=== PATIENT | male | born 1970 | race Caucasian/White ===

== ENCOUNTER 2020-02-27 15:50 | Emergency (ER) | payer MEDICAID, SELFPAY ==
[~2020-02-27] VITALS: Ht 185.4 cm; Wt 137.4 kg
[2020-02-27 15:50] VITALS: BP_SYST 160
--- NOTE | 2020-02-27 15:50 | NUR ---
BROUGHT INTO TRIAGE TENT AND TRIAGED, AWAITING ER BED
--- NOTE | 2020-02-27 16:01 | NUR ---
DR COFFEY OUT TO TENT FOR EVALUATION
--- NOTE | 2020-02-27 16:05 | NUR ---
PT STATES HE HAS BEEN +COVID SINCE 02/18/20 AND STILL FEELS HORRIBLE. WEAK, HEADACHES, SOB WITH EXERTION, MALAISE, NAUSEA
[2020-02-27 16:50] VITALS: BP_SYST 154
--- NOTE | 2020-02-27 16:51 | NUR ---
Patient given written and verbal discharge instructions and verbalizes understanding. ER MD discussed with patient the results and treatment provided. Patient in stable condition. ID arm band removed. Rx of LOMOTIL given. Patient educated on pain management and to follow up with PMD. Pain Scale 0/10. Opportunity for questions provided and answered. Medication side effect fact sheet provided.
== END 2020-02-27 16:51 | disposition home or self-care (01) ==
LOC: SED 15:50
DX: U07.1 COVID-19 (principal)
CPT/HCPCS: 99283

== ENCOUNTER 2020-07-04 11:35 | Emergency (ER) | payer MEDICAID, SELFPAY ==
[~2020-07-04] VITALS: Ht 185.4 cm; Wt 131.5 kg
[2020-07-04 11:35] VITALS: BP_SYST 155
[2020-07-04 11:50] VITALS: BP_SYST 155
== END 2020-07-04 11:50 | disposition home or self-care (01) ==
LOC: SED 11:35
DX: R06.02 Shortness of breath (principal); I10 Essential (primary) hypertension
CPT/HCPCS: 99281

== ENCOUNTER 2020-07-23 12:33 | Emergency (ER) | payer MEDICAID, SELFPAY ==
[~2020-07-23] VITALS: Ht 185.4 cm; Wt 129.3 kg
[2020-07-23 12:35] VITALS: BP_SYST 118
[2020-07-23] MEDS ORDERED: NACL 0.9% 1,000 ML IV ONE (13:15)
[2020-07-23 13:37] LABS: BASOPHILS # (AUTO) 0.1 K/uL (0.0-0.2); BASOPHILS % (AUTO) 0.6 % (0.0-2.0); EOSINOPHILS % (AUTO) 0.3 % (0.0-4.0); HEMOGLOBIN 11.6 g/dL (14.0-18.0); LYMPHOCYTES % (AUTO) 8.3 % (20.5-51.5); MEAN CORPUSCULAR HEMOGLOBIN 22 pg (27-31); MEAN CORPUSCULAR HGB CONC 32 % (32-36); MEAN CORPUSCULAR VOLUME 69 fL (79.0-98.0); MONOCYTES # (AUTO) 0.7 K/uL (0.0-1.0); MONOCYTES % (AUTO) 5.6 % (1.7-9.3); NEUTROPHILS # (AUTO) 10.7 K/uL (1.8-7.7); NEUTROPHILS % (AUTO) 85.2 % (40.0-70.0); PLATELET COUNT (AUTO) 174 K/uL (130-430); RED BLOOD CELL COUNT(AUTO) 5.37 MIL/uL (4.2-6.2); RED CELL DISTRIBUTION WIDTH 23.3 % (9.0-15.0); WHITE BLOOD COUNT (AUTO) 12.6 K/uL (4.8-10.8)
[2020-07-23 13:49] LABS: CALCIUM 8.5 mg/dL (8.4-11.0); CREATININE 1.57 mg/dL (0.55-1.30); POTASSIUM 3.6 mmol/L (3.5-5.1)
[2020-07-23 13:53] LABS: INR 1.1 (0.80-1.20); PROTHROMBIN TIME 11.7 SECS (9.5-12.5)
[2020-07-23 13:54] LABS: ALBUMIN 3.1 g/dL (3.4-4.8); TOTAL BILIRUBIN 0.9 mg/dL (0.0-1.0)
[2020-07-23] MEDS ORDERED: CLINDAMYCIN 300 MG/50 ML D5W 50 ML IV ONE (14:45)
[2020-07-23] MEDS ORDERED: CLIN300C12 PO (14:49)
[2020-07-23 15:11] LABS: BILIRUBIN,URINE NEGATIVE (NEGATIVE); BLOOD, URINE NEGATIVE (NEGATIVE); COLOR,URINE YELLOW (YELLOW); GLUCOSE,URINE NEGATIVE (NEGATIVE); KETONES,URINE NEGATIVE (NEGATIVE); LEUKOCYTE ESTERASE ,URINE TRACE (NEGATIVE); NITRITE, URINE NEGATIVE (NEGATIVE); PH,URINE 6.5 (5.0-8.0); PROTEIN URINE NEGATIVE (NEGATIVE)
[2020-07-23 15:13] LABS: CLARITY/URINE SLIGHTLY HAZY (CLEAR)
[2020-07-23 15:15] LABS: BACTERIA,URINE FEW /HPF (None Seen); MUCUS,URINE None Seen /LPF (None Seen); RBC,URINE NONE SEEN /HPF (0-3)
[2020-07-23 15:58] VITALS: BP_SYST 118
== END 2020-07-23 15:59 | disposition home or self-care (01) ==
LOC: SED 12:33
DX: R55 Syncope and collapse (principal); L03.116 Cellulitis of left lower limb; D64.9 Anemia, unspecified; R10.30 Lower abdominal pain, unspecified; I10 Essential (primary) hypertension; Z79.899 Other long term (current) drug therapy
CPT/HCPCS: 36415; 71045; 80053; 81000; 83690; 85025; 85379; 85610; 85730; 87086; 93005; 93971; 96361; 96374; 99285; J3490; J7030

== ENCOUNTER 2020-11-11 10:42 | Emergency (ER) | payer MEDICAID ==
[~2020-11-11] VITALS: Ht 185.4 cm; Wt 129.3 kg
[~2020-11-11 10:42] MED LIST: CLIN300C12 PO
[2020-11-11 11:23] VITALS: BP_SYST 161
--- NOTE | 2020-11-11 11:23 | NUR ---
Patient to ER bed 7 to gown for evaluation. Side rails up.
--- NOTE | 2020-11-11 11:26 | NUR ---
ER DR. COFFEY AT THE BEDSIDE EXAMINING PT
[2020-11-11] MEDS ORDERED: HYDROcodone/ACETAMIN 5-325 MG TAB (NORCO/ VICODIN) PO ONE (11:30)
--- NOTE | 2020-11-11 11:30 | NUR ---
PT CAME IN C/O LEFT SHOULDER PAIN AND SLIPPING AND FALLING ON IT. NO TRAUMA, PAIN WITH MOVEMENT. NO DEFORMITY. PT IS GUARDING. AMBULATORY, AAOX4, V/S STABLE
[2020-11-11] MEDS ORDERED: TRAM50TA PO (11:58)
[2020-11-11] MEDS ORDERED: NAPR-688 PO (11:58)
--- NOTE | 2020-11-11 12:10 | NUR ---
SLING PROVIDED TO PT, FITTED AND PT VERBALIZED COMFORT WITH SIZE AND POSITION
[2020-11-11 12:18] VITALS: BP_SYST 147
--- NOTE | 2020-11-11 12:18 | NUR ---
Patient given written and verbal discharge instructions and verbalizes understanding. ER MD discussed with patient the results and treatment provided. Patient in stable condition. ID arm band removed. Rx of TRAMADOL AND NAPROXEN given. Patient educated on pain management and to follow up with PMD. Pain Scale 5/10. Opportunity for questions provided and answered. Medication side effect fact sheet provided.
== END 2020-11-11 12:18 | disposition home or self-care (01) ==
LOC: SED 10:42
DX: S40.012A Contusion of left shoulder, initial encounter (principal); I10 Essential (primary) hypertension; Z79.899 Other long term (current) drug therapy; W18.39XA Other fall on same level, initial encounter; Y93.89 Activity, other specified; Y92.89 Other specified places as the place of occurrence of the external cause; Y99.8 Other external cause status
CPT/HCPCS: 73030; 99283